=== PATIENT | male | born 1945 | race African-American/Black ===

== ENCOUNTER 2020-07-03 10:43 | Outpatient (CLI) | payer MEDICARE, MEDICAID ==
--- NOTE | 2020-07-03 10:55 | RAD ---
PA AND LATERAL VIEWS CHEST: HISTORY: Chest pain. FINDINGS: The heart size is normal. The lungs are expanded without focal areas of consolidation, pneumothorace s, or pleural effusions. There is mild scoliosis of the spine. IMPRESSION: No acute process. POS: OFF
== END 2020-07-03 10:44 | disposition home or self-care (01) ==
LOC: NAV RAD 10:43
PROVIDERS: ATTEND Family Medicine
DX: R07.89 Other chest pain (principal)
CPT/HCPCS: 71046

== ENCOUNTER 2022-12-15 09:58 | Outpatient (CLI) | payer OTHER, MEDICAID ==
[~2022-12-15 09:58] MED LIST: Iopamidol 370 76% 100 ML VIAL ONE
[2022-12-15 10:52] LABS: Anion Gap 17 mmol/L (10-20); BUN (Urea Nitrogen) 14 mg/dL (8.4-25.7); Calc. Creatinine Clearance 0 mL/min (70-130); Calcium 9.5 mg/dL (7.8-10.44); Carbon Dioxide 23 mmol/L (23-31); Chloride 109 mmol/L (98-107); Estimated GFR 66; Glucose 96 mg/dL (83-110); Potassium 3.8 mmol/L (3.5-5.1); Sodium 145 mmol/L (136-145)
== END 2022-12-15 09:59 | disposition home or self-care (01) ==
LOC: NAV CT 09:58
PROVIDERS: ATTEND Family Medicine
DX: I10 Essential (primary) hypertension (principal); R63.4 Abnormal weight loss; R74.01 Elevation of levels of liver transaminase levels; K46.9 Unspecified abdominal hernia without obstruction or gangrene; K76.89 Other specified diseases of liver; M47.817 Spondylosis without myelopathy or radiculopathy, lumbosacral region; M43.17 Spondylolisthesis, lumbosacral region
CPT/HCPCS: 36415; 74177; 80048; Q9967